=== PATIENT | female | born 1985 | race Caucasian/White ===

== ENCOUNTER 2018-05-05 23:50 | Emergency (ER) | END 2018-05-06 02:17 | disposition home or self-care (01) ==

== ENCOUNTER 2018-05-08 01:06 | Emergency (ER) | END 2018-05-08 09:00 | disposition home or self-care (01) ==

== ENCOUNTER 2018-05-21 00:35 | Day surgery (SDC) | payer OTHER ==
[2018-05-21] VITALS (9 sets, daily range): BP systolic 115–131; BP diastolic 71–83; PULSE 59–74; RESP 12–20; Ht 165.1 cm; Wt 61.4 kg
[~2018-05-21] VITALS: Ht 165.1 cm; Wt 61.4 kg
[~2018-05-21 00:35] MED LIST: CHLO25CA9 PO
[2018-05-21] MEDS ORDERED: ACETAMINOPHEN 500 MG TAB PO STA (04:42)
[2018-05-21] MEDS ORDERED: SOD CHLORIDE 0.9% 1,000 ML IV STA (05:06)
--- NOTE | 2018-05-21 05:35 | ERD ---
ER Documentation Chief Complaint Chief Complaint vaginal bleeding x 1 day, states about 8 weeks HPI 32-year-old female last menstrual period March presenting to the emergency department with heavy vaginal bleeding with moderate crampy pelvic pain for the past few hours prior to being seen. Patient states that she has been using 2 pads so far in the last 30 minutes. Patient denies fevers, dysuria, nausea vomiting diarrhea. Patient states that she just found out that she is today with the present test. She states that she does not have an DENTAL HYGIENIST. Upon asking if patient would like to keep the , patient states that she does not want to keep it if is causing her pain like this ROS All systems reviewed and are negative except as per history of present illness. Medications Home Meds Active Scripts Chlordiazepoxide* (Chlordiazepoxide*) 25 Mg Capsule, 25 MG PO Q8 PRN for CONTROL WITHDRAWAL SYMPTOMS, #10 CAP Prov:MANUEL WAYRubén 05/06/18 Allergies Allergies: Coded Allergies: No Known Drug Allergies (Verified Allergy, Unknown, 05/21/18) PMhx/Soc Medical and Surgical Hx: pt denies Medical Hx, pt denies Surgical Hx Hx Alcohol Use: No Hx Substance Use: Yes (meth) Hx Tobacco Use: Yes Smoking Status: Current every day smoker Physical Exam Vitals Vital Signs Date Temp Pulse Resp B/P (MAP) Pulse Ox O2 O2 Flow FiO2 Time Delivery Rate 05/21/18 97.2 91 18 119/81 98 00:37 (94) Physical Exam Const: No acute distress Head: Atraumatic Eyes: Normal Conjunctiva ENT: Normal External Ears, Nose and Mouth. Neck: Full range of motion. No meningismus. Resp: Clear to auscultation bilaterally Cardio: Regular rate and rhythm, no murmurs Abd: Soft, non tender, non distended. Normal bowel sounds Tender palpation of the pelvic region, vaginal vault had heavy vaginal bleeding cannot see the cervix Skin: No petechiae or rashes Back: No midline or flank tenderness Ext: No cyanosis, or edema Neur: Awake and alert Psych: Normal Mood and Affect Result Diagram: 05/21/185 05/21/18254 Results 24 hrs Laboratory Tests Test 05/21/18 02:55 05/21/18 03:40 White Blood Count 27.4 10^3/ul Red Blood Count 4.31 10^6/ul Hemoglobin 12.1 g/dl Hematocrit 36.1 % Mean Corpuscular Volume 83.8 fl Mean Corpuscular Hemoglobin 28.1 pg Mean Corpuscular Hemoglobin Concent 33.5 g/dl Red Cell Distribution Width 13.0 % Platelet Count 320 10^3/UL Mean Platelet Volume 10.4 fl Immature Granulocytes % 0.600 % Neutrophils % % Segmented Neutrophils % (Manual) 89 % Lymphocytes % % Lymphocytes % (Manual) 5 % Monocytes % % Monocytes % (Manual) 5 % Eosinophils % % Basophils % % Basophils % (Manual) 1 % Nucleated Red Blood Cells % 0.0 /100WBC Immature Granulocytes # 0.170 10^3/ul Neutrophils # 10^3/ul Lymphocytes (Manual) 1.3 10^3/ul Lymphocytes # 10^3/ul Monocytes # 10^3/ul Monocytes # (Manual) 1.3 10^3/ul Eosinophils # 10^3/ul Basophils # 10^3/ul Basophils # (Manual) 0.2 10^3/ul Nucleated Red Blood Cells # 10^3/ul Platelet Estimate NORMAL Giant Platelets 1 % Sodium Level 139 mmol/L Potassium Level 4.0 mmol/L Chloride Level 106 mmol/L Carbon Dioxide Level 21 mmol/L Anion Gap 12 Blood Urea Nitrogen 8 mg/dl Creatinine 0.48 mg/dl Est Glomerular Filtrat Rate mL/min > 60 mL/min Glucose Level 132 mg/dl Calcium Level 9.6 mg/dl Total Bilirubin 1.5 mg/dl Direct Bilirubin 0.00 mg/dl Indirect Bilirubin 1.5 mg/dl Aspartate Amino Transf (AST/SGOT) 15 IU/L Alanine Aminotransferase (ALT/SGPT) 11 IU/L Alkaline Phosphatase 55 IU/L Total Protein 7.0 g/dl Albumin 4.0 g/dl Globulin 3.00 g/dl Albumin/Globulin Ratio 1.33 Beta HCG, Quantitative 43404.0 mIU/ml Urine Color YELLOW Urine Clarity CLEAR Urine pH 5.0 Urine Specific [place] 1.025 Urine Ketones NEGATIVE mg/dL Urine Nitrite NEGATIVE mg/dL Urine Bilirubin NEGATIVE mg/dL Urine Urobilinogen NEGATIVE mg/dL Urine Leukocyte Esterase NEGATIVE Brianne/ul Urine Microscopic RBC 39 /HPF Urine Microscopic WBC 1 /HPF Urine Mucus FEW /HPF Urine Hemoglobin 1+ mg/dL Urine Glucose NEGATIVE mg/dL Urine Total Protein NEGATIVE mg/dl Current Medications Medications Dose Sig/Neal Start Time Status Last (Trade) Ordered Route PRN Stop Time Admin Dose Reason Admin 1,000 mg ONCE STAT 05/21/18 DC 05/21/18 Acetaminophen PO 04:42 05/21/18 04:52 (Tylenol 04:43 Tab) Sodium 1,000 ml @ Q1H STAT 05/21/18 Chloride 1,000 mls/hr IV 05:06 05/21/18 06:05 Procedures/MDM 32-year-old female last who is 7 weeks presenting with heavy vaginal bleeding likely to be in process of a miscarriage. That was done in the ED and showed live gestation of 6 weeks with a heartbeat of 111 and Beta hcg 13,313 with leukocytosis of 27. Access established, patient was given 1 L fluids. She is given Tylenol for pain. At this time patient is hemodynamic stable. I have consulted DENTAL HYGIENIST will evaluate the patient as well. Patient will be passed down to the next physician library circulation assistant for disposition after OB consult Pelvic US There is a single live intrauterine gestational with a heart rate of 111 bpm. The yolk sac is not demonstrated. There is a pole with a crown-rump length of 0.4 cm. There is an estimated gestational age of 6 weeks a 0 days. No suspicious adnexal lesions are seen. Single live intrauterine gestational , as described above. Departure Diagnosis: Primary Impression: Vaginal bleeding in patient at less than 20 weeks gestation Condition: Stable JADE BARCLAY PA-C May 21, 2018 05:35
[2018-05-21] MEDS ORDERED: SEVOFLURANE 15 MIN ONE (07:00)
--- NOTE | 2018-05-21 07:44 | EN ---
Date/Time of Note Date/Time of Note DATE: 05/21/18 TIME: 07:42 ER Progress Note This patient was signed out to me by physician therapist's assistant as she was leaving her end of shift. Patient was seen and evaluated by Dr. Galindo at bedside at 07:20, OB doctor, and it was decided that patient will be taken into surgery for a dilation and curettage. Patient is stable at this time. ANNAMARIA GOODWIN PA-C May 21, 2018 07:44
--- NOTE | 2018-05-21 08:47 | PREAC ---
Date/Time of Note Date/Time of Note DATE: 05/21/18 TIME: 08:46 Anesthesia Eval and Record Evaluation Time Pre-Procedure Interview DATE: 05/21/18 TIME: 08:46 Age 32 Sex female NPO: 8 hrs Preoperative diagnosis incompltete Planned procedure d&C Past Medical History Past Medical History: Includes : Gestational age: (8) Surgery & Anesthesia Issues No known issue Meds Anticoagulation: No Beta Devin within 24 hr: No Reason Beta Devin not given: Pt. not on B-Devin Active Scripts Chlordiazepoxide* (Chlordiazepoxide*) 25 Mg Capsule, 25 MG PO Q8 PRN for CONTROL WITHDRAWAL SYMPTOMS, #10 CAP Prov:MANUEL WAY 05/06/18 Meds reviewed: Yes Allergies Coded Allergies: No Known Drug Allergies (Verified Allergy, Unknown, 05/21/18) Allergies Reviewed: Yes Labs/Studies Labs Reviewed: Reviewed by anesthesiologist Result Diagram: 05/21/18 0255 05/21/18 0255 Laboratory Tests 05/21/18 02:55 Blood Bank Test 05/21/18 02:55 Blood Type A POSITIVE test: Positive Studies: ECG (n/a), CXR (n/a) Pre-procedure Exam Last vitals Vital Signs Date Temp Pulse Resp B/P (MAP) Pulse Ox O2 O2 Flow FiO2 Time Delivery Rate 05/21/18 97.6 80 20 106/59 98 Room Air 07:33 (75) Airway: Adequate mouth opening Mallampati: Mallampati I Teeth: Normal Lung: Normal Heart: Normal ASA Physical Status ASA physical status: 1 Emergency: None Planned Anesthetic General/MAC: ETT, LMA Planned Pain Management Parenteral pain med Pre-operative Attestations Prior to commencing anesthesia and surgery, the patient was re-evaluated, there was verification of: *The patient's identity *The results of appropriate recent lab work and preoperative vital signs *The above evaluation not changing prior to induction *Anesthetic plan, risk benefits, alternative and complications discussed with patient/family; questions answered; patient/family understands, accepts and wishes to proceed. JUNIOR TAVAREZ MD May 21, 2018 08:47
[2018-05-21] MEDS ORDERED: CEFAZOLIN 1 GM INJ ONE (08:54)
[2018-05-21] MEDS ORDERED: FENTAnyl 50 MCG/ML VIAL ONE (08:54)
[2018-05-21] MEDS ORDERED: PROPOFOL 20 ML ONE (08:54)
[2018-05-21] MEDS ORDERED: ONDANSETRON 4 MG INJ ONE (08:55)
[2018-05-21] MEDS ORDERED: METOCLOPRAMIDE 10 MG INJ ONE (08:55)
[2018-05-21] MEDS ORDERED: ONDANSETRON 4 MG INJ IV PRN (09:00)
[2018-05-21] MEDS ORDERED: DIPHENHYDRAMINE 50 MG INJ IV PRN (09:00)
[2018-05-21] MEDS ORDERED: HYDROmorphONE 1 MG/5 ML IV SYRINGE IV PRN ×3 (09:00)
[2018-05-21] MEDS ORDERED: MEPERIDINE 25 MG INJ IV PRN (09:00)
--- NOTE | 2018-05-21 09:53 | OPPN ---
Date/Time of Note Date/Time of Note DATE: 05/21/18 TIME: 09:52 Operative Report Preoperative Diagnosis Incomplete at 6 weeks Postoperative Diagnosis same Operation/Procedure Performed D&C&suction Surgeon see signature line assistant banquet manager none Anesthesia: general Estimated blood loss: 10 - 50 ml's Transfusion Required none Specimen POC Grafts/Implants none Complications none EAGLE PEREYRA M.D. May 21, 2018 09:53
--- NOTE | 2018-05-21 09:59 | PAC ---
Date/Time of Note Date/Time of Note DATE: 05/21/18 TIME: 09:59 Post-Anesthesia Notes Post-Anesthesia Note Last documented vital signs Vital Signs Date Temp Pulse Resp B/P (MAP) Pulse Ox O2 O2 Flow FiO2 Time Delivery Rate 05/21/18 97.6 80 20 106/59 98 Room Air 07:33 (75) Activity: WNL Respiratory function: WNL Cardiovascular function: WNL Mental status: Baseline Pain reasonably controlled: Yes Hydration appropriate: Yes Nausea/Vomiting absent: No JUNIOR TAVAREZ MD May 21, 2018 09:59
--- NOTE | 2018-05-21 10:49 | OPR ---
DATE OF OPERATION: 05/21/2018 PREOPERATIVE DIAGNOSIS: Complete at 6 weeks. POSTOPERATIVE DIAGNOSIS: Complete at 6 weeks. OPERATION PERFORMED: Dilation and curettage and suction. ATTENDING SURGEON: Geoff Waldron MD ANESTHESIOLOGIST: Dr. Bhatia. ANESTHESIA: General. COMPLICATIONS: None. ESTIMATED BLOOD LOSS: Minimal. TECHNIQUE: The patient was taken to the operating room where general anesthesia was found to be adeq uate. Patient was placed in dorsal lithotomy position. After prep and drape, a weighted speculum wa s placed inside the vaginal vault. Anterior lip of the cervix was grasped by single-tooth tenaculum. Cervix was 2 cm further dilated. Suction size 8 was inserted. Intrauterine cavity was suctioned. Sharp curettage of endometrial cavity was done. Hemostasis achieved. The patient tolerated the pro cedure well and was transferred to recovery room in stable condition. There was no complication rega rding this surgery. Dictated By: GEOFF URBAN/JEANA Conf#: [id number] DID#: [id number]
--- NOTE | 2018-05-21 10:51 | HP ---
DATE OF ADMISSION: 05/21/2018 HISTORY OF PRESENT ILLNESS: This 32-year-old with vaginal bleeding, passing tissue, admitted to the Emergency Room with a diagnosis of incomplete . PAST MEDICAL HISTORY: Denies. PAST SURGICAL HISTORY: Denies. ALLERGIES: NKDA. PHYSICAL EXAMINATION: VITAL SIGNS: Stable. GENERAL: Normal. ABDOMEN: Not tender, not distended. GENITAL: Cervix is 2 cm open around 5 to 6 clots in the vaginal vault. ASSESSMENT AND PLAN: A 32-year-old at 6 weeks gestational age with diagnosis of inevitable , incomplete , was consulted about D and C and suction. Risks and benefits discussed. Consen t signed and the patient was taken to the operating room. Dictated By: EAGLE URBAN/JEANA Conf#: [id number] DID#: [id number]
== END 2018-05-21 11:30 | disposition home or self-care (01) ==
LOC: FTE 00:35 → SDS 08:40
PROVIDERS: ATTEND Obstetrics & Gynecology
DX: O03.4 Incomplete spontaneous abortion without complication (principal)
CPT/HCPCS: 58120; 76801; 76817; 80053; 81001; 84702; 85025; 86900; 86901; 88305; J0690; J1170; J2175; J2405; J2765; J3010; J7030; Z7512; Z7610; 96361; 96374; 96375

== ENCOUNTER 2018-09-01 01:16 | Emergency (ER) | payer OTHER ==
[~2018-09-01] VITALS: Ht 165.1 cm; Wt 59.5 kg
[2018-09-01 01:22] VITALS: Ht 165.1 cm; Wt 59.5 kg
[2018-09-01] MEDS ORDERED: IBUPROFEN 600 MG TAB PO ONE (02:30)
[2018-09-01] MEDS ORDERED: IBUP-1542 PO (03:13)
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
[2018-09-01 03:22] VITALS: BP 141/70; PULSE 87; RESP 18
== END 2018-09-01 03:22 | disposition home or self-care (01) ==
LOC: FTE 01:16
DX: S62.666A Nondisplaced fracture of distal phalanx of right little finger, initial encounter for closed fracture (principal); F17.200 Nicotine dependence, unspecified, uncomplicated; Y04.0XXA Assault by unarmed brawl or fight, initial encounter
CPT/HCPCS: 29130; 73140; Z7502; Z7610

== ENCOUNTER 2018-12-10 16:21 | Emergency (ER) | payer OTHER ==
[~2018-12-10] VITALS: Ht 165.1 cm; Wt 59.1 kg
[~2018-12-10 16:21] MED LIST changes: +DOXY1TAB3 PO; +IBUP-1542 PO
[2018-12-10 16:36] VITALS: Ht 165.1 cm; Wt 59.1 kg
[2018-12-10 17:59] VITALS: BP 127/70; PULSE 71; RESP 18
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
== END 2018-12-10 18:02 | disposition home or self-care (01) ==
LOC: FTE 16:21
DX: Z32.01 Encounter for pregnancy test, result positive (principal); F17.210 Nicotine dependence, cigarettes, uncomplicated; R69 Illness, unspecified
CPT/HCPCS: 81003; 81025; 87086; Z7502; 99283